=== PATIENT | female | born 1960 | race Asian ===

== ENCOUNTER 2024-09-16 15:30 | Outpatient (AMB) | payer OTHER, SELFPAY ==
--- OUTSIDE RECORDS SUMMARY | 2024-09-16 15:49 | XMS_ITS | Patient Health Record ---
Author Organization [facility] Address 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 Name Role Phone JANET WRIGHT Primary Care Provider AnaJoana cook Unavailable [phone] Allergies No Known Allergies Results Component Value Reference Range Notes CBC with Diff, Platelet, NLR -[id number] Reviewed date:07/22/2024 03:24:43 PM Interpretation: Performing Lab:[facility], [address] [place] [address], [place], Phone - [phone], Director - Adam Notes/Report: WBC 4.4 3.4-10.8 x10E3/uL RBC 5.01 4.14-5.80 x10E6/uL Hemoglobin 14.4 13.0-17.7 g/dL Hematocrit 44.8 37.5-51.0 % MCV 89 79-97 fL MCH 28.7 26.6-33.0 pg MCHC 32.1 31.5-35.7 g/dL RDW 13.2 11.6-15.4 % Platelets 290 150-450 x10E3/uL Neutrophils 39 Not Estab. % Lymphs 44 Not Estab. % Monocytes 8 Not Estab. % Eos 8 Not Estab. % Basos 1 Not Estab. % Neutrophils (Absolute) 1.7 1.4-7.0 x10E3/uL Lymphs (Absolute) 1.9 0.7-3.1 x10E3/uL Neut/Lymph Ratio 0.9 0.0-2.9 ratio Published COVID-19 studies suggest: Low likelihood of severe COVID-19 disease progression 0.0-2.9 High likelihood of severe COVID-19 disease progression >4.9 Monocytes(Absolute) 0.4 0.1-0.9 x10E3/uL Eos (Absolute) 0.4 0.0-0.4 x10E3/uL Baso (Absolute) 0.0 0.0-0.2 x10E3/uL Immature Granulocytes 0 Not Estab. % Immature Grans (Abs) 0.0 0.0-0.1 x10E3/uL Lipid Panel With LDL/HDL Rat [id number] Reviewed date:07/22/2024 03:25:47 PM Interpretation: Performing Lab:[facility], [address] [facility], [place], Phone - [phone], Director - MDy Notes/Report: Cholesterol, Total 209 100-199 mg/dL Triglycerides 149 0-149 mg/dL HDL Cholesterol 48 >39 mg/dL VLDL Cholesterol Heladio 27 5-40 mg/dL LDL Chol Calc (NIH) 134 0-99 mg/dL LDL/HDL Ratio 2.8 0.0-3.6 ratio LDL/HDL Ratio Men Women 1/2 Avg.Risk 1.0 1.5 Avg.Risk 3.6 3.2 2X Avg.Risk 6.2 5.0 3X Avg.Risk 8.0 6.1 Comp. Metabolic Panel ([id number] Reviewed date:07/22/2024 03:26:05 PM Interpretation: Performing Lab:[facility], [address] [facility], [place], Phone - [phone], Director - Adam Notes/Report: Glucose 92 70-99 mg/dL BUN 11 8-27 mg/dL Creatinine 0.80 0.76-1.27 mg/dL eGFR 100 >59 mL/min/1.73 BUN/Creatinine Ratio 14 10-24 Sodium 136 134-144 mmol/L Potassium 4.3 3.5-5.2 mmol/L Chloride 98 96-106 mmol/L Carbon Dioxide, Total 23 20-29 mmol/L Calcium 9.5 8.6-10.2 mg/dL Protein, Total 7.2 6.0-8.5 g/dL Albumin 4.2 3.9-4.9 g/dL Globulin, Total 3.0 1.5-4.5 g/dL Bilirubin, Total 0.3 0.0-1.2 mg/dL Alkaline Phosphatase 79 44-121 IU/L AST (SGOT) 38 0-40 IU/L PSA (Serial Monitor)-[id number] Reviewed date:07/22/2024 03:25:56 PM Interpretation: Performing Lab:[facility] [place], [address] [place] [address], Phone - [phone], Director - Adam Notes/Report: Prostate Specific Ag 0.2 0.0-4.0 ng/mL Tu ECLIA methodology. . According to the [place] [employer], Serum PSA should decrease and remain at undetectable levels after radical prostatectomy. The AUA defines biochemical recurrence as an initial PSA value 0.2 ng/mL or greater followed by a subsequent confirmatory PSA value 0.2 ng/mL or greater. Values obtained with different assay methods or kits cannot be used interchangeably. Results cannot be interpreted as absolute evidence of the presence or absence of malignant disease. Vitamin D, 40-Fygbmqv-[id number] Reviewed date:07/22/2024 03:24:34 PM Interpretation: Performing Lab:[facility] [place], [address] [place] [address], Phone - [phone], Director - Adam Notes/Report: Vitamin D, 25-Hydroxy 39.8 30.0-100.0 ng/mL Vitamin D deficiency has been defined by the [place] of [employer] and an Endocrine Society practice guideline as a level of serum 25-OH vitamin D less than 20 ng/mL (1,2). The Endocrine Society went on to further define vitamin D insufficiency as a level between 21 and 29 ng/mL (2). 1. IOM ([place] of [employer]). 2010. Dietary reference intakes for calcium and D. [place]: The National Academies Press. 2. Roxana MF, Kristina NC, Carlos Alberto LARIOS, et al. Evaluation, treatment, and prevention of vitamin D deficiency: an Endocrine Society clinical practice guideline. JCEM. 2010; 96(7):1911-30. 25-Hydroxyvitamin D LCMS D2+ [id number] Reviewed date:07/24/2024 08:05:33 AM Interpretation: Performing Lab:[facility], [address] [place] [address], Phone - [phone], Director - [facility] Notes/Report: 25-Hydroxy, Vitamin D 31 Reference Range: All Ages: Target levels 30 - 100 25-Hydroxy, Vitamin D-2 <1.0 This test was developed and its performance characteristics determined by [facility]. It has not been cleared or approved by the Food and Drug Administration. 25-Hydroxy, Vitamin D-3 31 This test was developed and its performance characteristics determined by [facility]. It has not been cleared or approved by the Food and Drug Administration. Reason For Referral Reason routine screening co lonoscopy Please evaluate and treat Diagnosis 1 Encounter for screen ing for malignant neoplasm of colon (Z12.11) Referral Organization [facility] Referring Provider First Name Joana Referring Provider Last Name Nasra Referring Provider Speciality Internal M edicine Referred Provider Specialty Gastroentero logy General Notes Please call the mario ent to schedule the appointment, [facility] - [phone], Shabana Dacosta 06/12/2024 03:43:28 PM > Referral Priority Routine Reason EGD and screening co lonoscopy- Dr Christianson- [facility] Please evaluate and treat Diagnosis 1 Encounter for screen ing for malignant neoplasm of colon (Z12.11) Referral Organization [facility] Referring Provider First Name JANET Referring Provider Last Name ADRIANA Referring Provider Speciality Internal edicine Referred Provider Specialty Gastroentero logy General Notes Please call the mario ent to schedule the appointment, [facility]astroenter[facility]. Please contact them at [phone], Shabana Dacosta 07/10/2024 03:51:46 PM > Referral Priority Routine Reason NUMBNESS RIGHT FOURT H AND FIFTH TOE- DR ONTIVEROS Please evaluate and treat Diagnosis 1 Anesthesia of skin ( R20.0) Referral Organization [facility] Referring Provider First Name JANET Referring Provider Last Name ADRIANA Referring Provider Speciality Internal edicine Referred Provider Specialty Neurology General Notes referral has been sc heduled on September 11, 2024. 3:[address] Ontiveros at [facility] P: [phone], SMS sent to the pt., Shabana Dacosta 07/30/2024 03:34:43 PM > Referral Priority Routine Medications Medication SIG (Take, Route, Frequency, Duration) Notes Start Date End Date Status Taty Allergy 180 MG 1 tablet Swallow whole with water; do not take with fruit juices. Orally Once a day Active Tylenol 325 MG 1 tablet as needed O rally every 6 hrs Active Hydrocortisone 2.5 % 1 application Exter omer Once a day; Duration: 30 days 07/10/2024 Active Omeprazole 20 MG 1 capsule 30 minutes before morning meal Orally Once a day; Duration: 90 days 06/10/2024 Active Omeprazole 40 MG 1 capsule as needed Orally Once a day Not-Taking Problems Problem Type SNOMED Code ICD Code Onset Dates Problem Status W/U Status Risk Notes Problem Herpes simplex viral infection (40813558) Herpesviral infection, unspecified (B00.9) Active confirmed Problem Vitamin D deficiency (26308464) Vitamin D deficiency, unspecified (E55.9) Active confirmed Problem Atopic dermatitis (37661828) Intrinsic (allergic) eczema (L20.84) Active confirmed Problem Paresthesia (finding) (55059496) Paresthesia of skin (R20.2) Active confirmed Problem Benign prostatic hypertrophy without outflow obstruction (241503539) Benign prostatic hyperplasia without lower urinary tract symptoms (N40.0) Active confirmed Problem Gastroesophageal reflux disease with esophagitis (disorder) (151394445) Gastro-esophag eal reflux disease with esophagitis, without bleeding (K21.00) Active confirmed Problem Essential hypertension (17200636) HTN (hypertension) , benign (I10) Active confirmed Vital Signs Heart Rate 77 /min 07/10/2024 Temperature 96.9 degrees Fahrenheit 07/10/2024 Blood pressure diastolic 70 mm Hg 07/10/2024 Oximetry 97 % 07/10/2024 Height 5'10'' in 07/10/2024 Blood pressure systolic 100 mm Hg 07/10/2024 Weight 161.4 lbs 07/10/2024 BMI 23.16 kg/m2 07/10/2024 Encounters Encounter Location Date Provider Diagnosis [address] [address] 06/10/2024 [place] Alam Intrinsic (allergic) eczema L20.84 ; HTN (hypertension), benign I10 ; Hyperlipidemia, mixed E78.2 ; Benign prostatic hyperplasia without lower urinary tract symptoms N40.0 and Gastro-esophageal reflux disease with esophagitis, without bleeding K21.[address] [address] 07/10/2024 [facility] Gastro-esophageal reflux disease with esophagitis, without bleeding K21.00 ; Herpesviral infection, unspecified B00.9 and Paresthesia of skin R20.2 [facility] [address] [facility] [address] [place] [address] 06/18/2024 Joana Hammonds Myalgia, unspecified site M79.10 [facility] [address] [facility] [address] [place] [address] 06/24/2024 Joana Hammonds [facility] [address] [facility] [address] [place] [address] 07/10/2024 JANET WRIGHT Vitamin D deficiency , unspecified E55.9 Assessments Encounter Date Diagnosis (ICD Code) Assessment Notes Treatment Notes Treatment Clinical Notes Section Notes 06/10/2024 Intrinsic (allergic) eczema (ICD-10 - L20.84) 63-year-old gentleman with history of GERD but no other significant past medical history comes in for a new PCP visit. Plan as following Hypertension blood pressure is stable, 102/64 is not on any medication. We will check a basic metabolic panel Hyperlipidemia screening we will check a lipid profile GERD he is on omeprazole but is not taking it as he is afraid of the cost. Due to recent insurance change he does not know what it will cost him. Will give a prescription will check with Mary about the [place]. social issues, patient is [place] to the country very overwhelmed the [employer] system, he is working at [employer] and worried about cost of living and other multiple expenses. Preventive health He will need a colonoscopy referral which we will make. After lab work results will do a complete physical and will further discuss plan of care.and address the preventive health issues 06/18/2024 Myalgia, unspecified site (ICD-10 - M79.10) 07/10/2024 Herpesviral infection, unspecified (ICD-10 - B00.9) Mr. Barnard is 63 years old gentlemen who is here today for a skin rash and also complains of epigastric discomfort and paresthesias of the right fourth and fifth toe which has been going on for a long time. He also lost roughly 30 pounds the past 1 year. Plan is as follows Herpes zoster infection. It is healing properly and he is asymptomatic. Discussed with the patient that no antiviral needed at this point because he is out of the window for treatment. Keep the area clean plan he is given hydrocortisone 2.5% cream. GERD. Continue PPIs. Diet restrictions discussed. He will be given referral to GI for EGD and screening colonoscopy. Paresthesias right fourth and fifth toe. Differential is lumbar radiculopathy, tarsal tunnel syndrome, nerve impingement. Referral to neurology for further workup. Weight loss. Most likely it is secondary to lifestyle change. He is physically active at work and he is also exercising. He does not have any systemic or constitutional symptoms. Advised to do fasting blood work. 07/10/2024 Gastro-esophage al reflux disease with esophagitis, without bleeding (ICD-10 - K21.00) Mr. Barnard is 63 years old gentlemen who is here today for a skin rash and also complains of epigastric discomfort and paresthesias of the right fourth and fifth toe which has been going on for a long time. He also lost roughly 30 pounds the past 1 year. Plan is as follows Herpes zoster infection. It is healing properly and he is asymptomatic. Discussed with the patient that no antiviral needed at this point because he is out of the window for treatment. Keep the area clean plan he is given hydrocortisone 2.5% cream. GERD. Continue PPIs. Diet restrictions discussed. He will be given referral to GI for EGD and screening colonoscopy. Paresthesias right fourth and fifth toe. Differential is lumbar radiculopathy, tarsal tunnel syndrome, nerve impingement. Referral to neurology for further workup. Weight loss. Most likely it is secondary to lifestyle change. He is physically active at work and he is also exercising. He does not have any systemic or constitutional symptoms. Advised to do fasting blood work. 07/10/2024 Vitamin D deficiency, unspecified (ICD-10 - E55.9) 07/10/2024 Paresthesia of skin (ICD-10 - R20.2) Mr. Barnard is 63 years old gentlemen who is here today for a skin rash and also complains of epigastric discomfort and paresthesias of the right fourth and fifth toe which has been going on for a long time. He also lost roughly 30 pounds the past 1 year. Plan is as follows Herpes zoster infection. It is healing properly and he is asymptomatic. Discussed with the patient that no antiviral needed at this point because he is out of the window for treatment. Keep the area clean plan he is given hydrocortisone 2.5% cream. GERD. Continue PPIs. Diet restrictions discussed. He will be given referral to GI for EGD and screening colonoscopy. Paresthesias right fourth and fifth toe. Differential is lumbar radiculopathy, tarsal tunnel syndrome, nerve impingement. Referral to neurology for further workup. Weight loss. Most likely it is secondary to lifestyle change. He is physically active at work and he is also exercising. He does not have any systemic or constitutional symptoms. Advised to do fasting blood work. 06/10/2024 HTN (hypertension), benign (ICD-10 - I10) 63-year-old gentleman with history of GERD but no other significant past medical history comes in for a new PCP visit. Plan as following Hypertension blood pressure is stable, 102/64 is not on any medication. We will check a basic metabolic panel Hyperlipidemia screening we will check a lipid profile GERD he is on omeprazole but is not taking it as he is afraid of the cost. Due to recent insurance change he does not know what it will cost him. Will give a prescription will check with Mary about the [place]. social issues, patient is new to the country very overwhelmed the [employer] system, he is working at [employer] and worried about cost of living and other multiple expenses. Preventive health He will need a colonoscopy referral which we will make. After lab work results will do a complete physical and will further discuss plan of care.and address the preventive health issues 06/10/2024 Hyperlipidemia, mixed (ICD-10 - E78.2) 63-year-old gentleman with history of GERD but no other significant past medical history comes in for a new PCP visit. Plan as following Hypertension blood pressure is stable, 102/64 is not on any medication. We will check a basic metabolic panel Hyperlipidemia screening we will check a lipid profile GERD he is on omeprazole but is not taking it as he is afraid of the cost. Due to recent insurance change he does not know what it will cost him. Will give a prescription will check with Mary about the [place]. social issues, patient is new to the country very overwhelmed the [employer] system, he is working at [employer] and worried about cost of living and other multiple expenses. Preventive health He will need a colonoscopy referral which we will make. After lab work results will do a complete physical and will further discuss plan of care.and address the preventive health issues 06/10/2024 Benign prostatic hyperplasia without lower urinary tract symptoms (ICD-10 - N40.0) 63-year-old gentleman with history of GERD but no other significant past medical history comes in for a new PCP visit. Plan as following Hypertension blood pressure is stable, 102/64 is not on any medication. We will check a basic metabolic panel Hyperlipidemia screening we will check a lipid profile GERD he is on omeprazole but is not taking it as he is afraid of the cost. Due to recent insurance change he does not know what it will cost him. Will give a prescription will check with Mary about the [place]. social issues, patient is new to the country very overwhelmed the [employer] system, he is working at [employer] and worried about cost of living and other multiple expenses. Preventive health He will need a colonoscopy referral which we will make. After lab work results will do a complete physical and will further discuss plan of care.and address the preventive health issues 06/10/2024 Gastro-esophage al reflux disease with esophagitis, without bleeding (ICD-10 - K21.00) 63-year-old gentleman with history of GERD but no other significant past medical history comes in for a new PCP visit. Plan as following Hypertension blood pressure is stable, 102/64 is not on any medication. We will check a basic metabolic panel Hyperlipidemia screening we will check a lipid profile GERD he is on omeprazole but is not taking it as he is afraid of the cost. Due to recent insurance change he does not know what it will cost him. Will give a prescription will check with Mary about the [place]. social issues, patient is new to the country very overwhelmed the [employer] system, he is working at [employer] and worried about cost of living and other multiple expenses. Preventive health He will need a colonoscopy referral which we will make. After lab work results will do a complete physical and will further discuss plan of care.and address the preventive health issues Plan Of Treatment Next Appt Details Provider Name:JANET WRIGHT , 06/10/2025 10:00:00 AM, [address] [place] [address], [phone], Insurance Providers Payer Name Payer Address Payer Phone Subscriber Number Group Number Insured Name Patient Relationship to Insured Coverage Start Date Coverage End Date [employer] [address] [place], [place] [phone] [id number] Triston Barnard Self - patient is the insured 5 Medical (General) History Medical History History ICD Code GERD Surgical History Surgery Date(Month/Year) history of retinal detachment in 2006 wh ich was repaired in [place] Nasal septum repair in 1976 Right testicular abscess drainage
--- NOTE | 2024-09-16 15:57 | MHC.OFFVIS ---
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 He has suffered from chronic neck pain and has been investigated and treated in [facility]. He continues to have discomfort in pain including stiffness in the back of his neck, about 4 to 5/10 in intensity, not radiating, worse with physical activity. In addition he also has noted discomfort in his both knees for which she was using a gel. More recently he has noted problem with his right foot, specially lateral 2 digits that would keep on pulling. Assessment & Plan Assessment & Plan (1) Cervical spondylarthritis: Comment: MRI C spine in [facility] in 2023: Mod multilevel 3/4, 4/5, 5/6 spondylitic stenosis, no cord lesion, diff DJD, straight curvature Code(s): M47.812 - Spondylosis without myelopathy or radiculopathy, cervical region Category: Medical Qualifiers: Spinal osteoarthritis complication: without myelopathy or radiculopathy Qualified Code(s): M47.812 - Spondylosis without myelopathy or radiculopathy, cervical region (2) Osteoarthritis: Code(s): M19.90 - Unspecified osteoarthritis, unspecified site Category: Medical Qualifiers: Osteoarthritis location: knee Osteoarthritis type: unspecified Laterality: bilateral Qualified Code(s): M17.0 - Bilateral primary osteoarthritis of knee (3) Tarsal tunnel syndrome: Code(s): G57.50 - Tarsal tunnel syndrome, unspecified lower limb Category: Medical Qualifiers: Laterality: bilateral Qualified Code(s): G57.53 - Tarsal tunnel syndrome, bilateral lower limbs Plan Impression: a: Chronic neck pain, mild to moderate, related to moderate spondolytic cervical spinal stenosis due to underlying degenerative disc disease w/o any myelomalacia b: Bilateral knee pain, probably mild OA c: Foot pain, probably due to loss of arch support from standing for long time with weight loss Rec: a: Conservative management for neck issues. No invtervention is needed at this time. Pain is expected to continue. He already is aware of proper exercises for neck, which he should continue to do. They are likely helping him. b: Proper shoe inserts and proper shoes for the type of work he is doing now. c: Try not to lose more weight, in fact, he should try to gain a few pounds. d: Regular leg and knee exercise to avoid issues related with arthritis. e: EMG/NCS legs to r/o entrapment neuropathy and TTS. Orders: Orders NE nerve conduction velocity Today G57.53 - Tarsal tunnel syndrome, bilateral lower limbs NE electromyogram (EMG) Today G57.53 - Tarsal tunnel syndrome, bilateral lower limbs Coding Level of Care Code Tele New Pt Level 5 (40046) Diagnoses Spondylosis of cervical region without myelopathy or radiculopathy M47.812 Spinal osteoarthritis complication: without myelopathy or radiculopathy Osteoarthritis of both knees, unspecified osteoarthritis type M17.0 Osteoarthritis location: knee Osteoarthritis type: unspecified Laterality: bilateral Tarsal tunnel syndrome of both lower extremities G57.53 Laterality: bilateral
[2024-09-16 16:05] VITALS: BMI 21.8
== END 2024-09-16 16:46 | disposition home or self-care (01) ==
LOC: HO.HSM 15:31
PROVIDERS: PCP Hospitalist; Visit Provider Psychiatry & Neurology Neurology
DX: M47.812 Spondylosis without myelopathy or radiculopathy, cervical region (principal); M17.0 Bilateral primary osteoarthritis of knee; G57.53 Tarsal tunnel syndrome, bilateral lower limbs
CPT/HCPCS: 99204